=== PATIENT | female | born 1970 | race Caucasian/White ===

== ENCOUNTER 2019-10-23 11:54 | Outpatient (CLI) | payer OTHER | END 2019-10-23 11:55 | disposition home or self-care (01) | LOC: LAB 11:54 | PROVIDERS: ATTEND Surgery | DX: Z01.812 Encounter for preprocedural laboratory examination (principal); Z20.828 Contact with and (suspected) exposure to other viral communicable diseases; K43.9 Ventral hernia without obstruction or gangrene | CPT/HCPCS: 81599 ==

== ENCOUNTER 2019-10-26 10:12 | Day surgery (SDC) | payer OTHER ==
[2019-10-26] MEDS ORDERED: fentaNYL 100 MCG/2 ML VIAL IVP ONE (10:13)
[2019-10-26] MEDS ORDERED: SUCCINYLCHOLINE 200 MG/10 ML VIAL IVP ONE (10:13)
[2019-10-26] MEDS ORDERED: ONDANSETRON 4 MG/2 ML VIAL IVP ONE (10:13)
[2019-10-26] MEDS ORDERED: NEOSTIGMINE 1 MG/1 ML 10 ML MDV IVP ONE (10:13)
[2019-10-26] MEDS ORDERED: MIDAZOLAM 2 MG/2 ML VIAL IVP ONE (10:13)
[2019-10-26] MEDS ORDERED: GLYCOPYRROLATE 1 MG/5 ML VIAL IVP ONE (10:13)
[2019-10-26] MEDS ORDERED: PROPOFOL 200 MG/20 ML VIAL IVP ONE (10:13)
[2019-10-26] MEDS ORDERED: DEXAMETHASONE 4 MG/ML VIAL IVP ONE (10:13)
[2019-10-26] MEDS ORDERED: ROCURONIUM 50 MG/5 ML VIAL IVP ONE (10:13)
[2019-10-26] MEDS ORDERED: LIDOCAINE-MPF 2% 5 ML VIAL IM ONE (10:13)
[2019-10-26] MEDS ORDERED: CEFAZOLIN SODIUM IN 0.9 % NACL 2 GM/100 ML BAG IV ONE (10:25)
[2019-10-26 10:33] LABS: HCG UR QUAL NEGATIVE
[2019-10-26] MEDS ORDERED: LACTATED RINGERS 1,000 ML IV ONE (10:49)
--- NOTE | 2019-10-26 11:06 | ANESTHESIA ---
Pre-Anesthesia VS, & Labs - Diagnosis open ventral hernia repair with mesh - Procedure ventral hernia Vital Signs: Temp Pulse Resp BP Pulse Ox 36.5 C 94 18 137/95 H 97 10/26/19 10:20 10/26/19 10:20 10/26/19 10:20 10/26/19 10:20 10/26/19 10:20 Height 5 ft 7 in Weight (kg) 104.6 kg - NPO >8 hours - Is Patient ?: No - Lab Results Lab results reviewed: Yes Home Medications and Allergies Home Medications: Ambulatory Orders Biotin 5,000 mcg PO DAILY 10/16/19 Cholecalciferol (Vitamin D3) [Vitamin D3] 2,000 unit PO DAILY 10/16/19 Ibuprofen [Motrin] 600 mg PO Q6H PRN 10/16/19 Loratadine [Claritin] 10 mg PO DAILY 10/16/19 Multivitamin 1 each PO DAILY 10/16/19 Amoxicillin/Potassium Clav [Amox Tr-K Clv 875-125 mg Tab] 1 each PO BID 10/23/19 Loratadine [Claritin] 10 mg PO DAILY 10/23/19 predniSONE [Deltasone] 20 mg PO BID 10/23/19 Biotin 5,000 mcg PO DAILY 10/16/19 Cholecalciferol (Vitamin D3) [Vitamin D3] 2,000 unit PO DAILY 10/16/19 Ibuprofen [Motrin] 600 mg PO Q6H PRN 10/16/19 Loratadine [Claritin] 10 mg PO DAILY 10/16/19 Multivitamin 1 each PO DAILY 10/16/19 Amoxicillin/Potassium Clav [Amox Tr-K Clv 875-125 mg Tab] 1 each PO BID 10/23/19 Loratadine [Claritin] 10 mg PO DAILY 10/23/19 predniSONE [Deltasone] 20 mg PO BID 10/23/19 Allergies/Adverse Reactions: Allergies Allergy/AdvReac Type Severity Reaction Status Date / Time avocado Allergy Anaphylaxis Verified 10/16/19 16:07 Anes History & Medical History - Anesthetic History Anesthesia Complications: reports: No previous complications Family history of Anesthesia Complications: Denies Family history of Malignant Hyperthermia: Denies - Medical History Cardiovascular: reports: Hypertension Pulmonary: reports: None Gastrointestinal: reports: GERD, Hiatal hernia, Colon polyps, Other Urinary: reports: None Musculoskeletal: reports: None Endocrine/Autoimmune: reports: None, Other (obesity) Skin: reports: None Smoking Status: Former smoker (quit 2011) Other Past Medical History: recently concluded regimen of prednisone for tx of what was suspected to be seasonal allergy related swelling of left neck lymph nodes, pharyngitis, dysphagia. patient reports swelling and symptoms resolved now. - Surgical History General: Colonoscopy, EGD, Other Exam General: Alert, Oriented x3, Cooperative Dental: WNL Mouth Opening: Greater than 4 Fingerbreadths Neck Mobility: Normal Mallampati classification: III Thyromental Distance: 4-6 cm Respiratory: Lungs clear Cardiovascular: Regular rate Plan Anesthesia Type: General Consent for Procedure(s) Verified and Reviewed: Yes Code Status: Attempt Resuscitation ASA classification: 2-Mild systemic disease Is this case an emergency?: No
[2019-10-26] MEDS ORDERED: BUPIVACAINE 0.25% PF 30 ML VIAL ONE (12:17)
[2019-10-26] MEDS ORDERED: BUPIVACAINE 0.25% PF 30 ML VIAL SUBQ ONE (13:31)
[2019-10-26] MEDS ORDERED: ONDANSETRON 4 MG/2 ML VIAL IVP PRN (15:00)
[2019-10-26] MEDS ORDERED: ACETAMINOPHEN/CODEINE 300 MG/30 MG TABLET PO PRN (15:02)
[2019-10-26] MEDS ORDERED: ACETAMINOPHEN/CODEINE 300 MG/30 MG TABLET PO ONE (15:29)
[2019-10-26 15:37] VITALS: BP 137/90
--- NOTE | 2019-10-26 17:54 | OPERATIVE REPORT ---
DATE OF SERVICE: 10/26/2019 Physician: Washington Nova MD PREOPERATIVE DIAGNOSIS: Ventral hernia. POSTOPERATIVE DIAGNOSIS: Ventral hernia. PROCEDURE PERFORMED 1. Open ventral hernia repair with mesh. 2. Preperitoneal dissection for mesh placement. SURGEON: Washington Nova MD SENIOR LICENSING MANAGER: None. TYPE OF ANESTHESIA 1. General endotracheal. 2. Local anesthesia with Marcaine. COMPLICATIONS: None. SPECIMENS: None. ESTIMATED BLOOD LOSS: None. DRAINS: None. FINDINGS: A 2.5 cm defect at the umbilicus and approximately 4 to 4.5 x 3 cm defect 1 cm cephalad of the umbilical hernia. Prosthetic, 1.5 inch wide x 2.5 inch wide cephalad by 5 inch tall polypropyle ne mesh placed preperitoneal. INDICATIONS FOR PROCEDURE: Patient is a 48-year-old with a symptomatic ventral hernia. She presents for open repair with mesh. Risks discussed. Alternatives discussed. All questions answered and co nsent obtained. DETAILS OF PROCEDURE: Patient was properly identified, brought to the operating room and placed in s upine position. She voided prior to surgery. General endotracheal anesthesia was induced. Sequenti al compression devices were placed. She was prepped and draped in a sterile fashion, given preoperat jacqueline antibiotics. Local anesthetic was given throughout the procedure. A supraumbilical 4 cm incisio n was made. The incision was extended left lateral to the umbilicus. Dissection proceeded with cutt ing current cautery or sharp dissection. The umbilical skin was sharply excised away from the umbili abiola hernia sac. She had herniated preperitoneal adipose tissue measuring approximately 4 x 4 cm ceph alad. The hernia sacs were carefully released from the fascia with cutting current cautery. The sma ll bridge between the 2 hernias was carefully released. A large preperitoneal dissection was perform ed. A pocket was created large enough for a 5 inch tall mesh as she has a sizable diastasis. A 2.5 inch wide cephalad by 1.5 wide caudad and 5 inches tall polypropylene mesh was placed preperitoneal. It was secured with multiple interrupted 0 Ethibond sutures. A double row was placed. The fascia w as brought largely together leaving a central defect of approximately 1.5 cm wide x 2.5 cm tall. The umbilical skin was tacked back down to fascia with interrupted 2-0 Vicryl, deep subcutaneous was neeraj sed with interrupted 2-0 Vicryl suture. Buried interrupted subdermal 3-0 Vicryl sutures were then pl aced. Skin was closed with a running 4-0 Monocryl subcuticular suture. Dressing was applied. She t olerated the procedure very well. TD: 10/26/2019 15:32
== END 2019-10-26 10:13 | disposition home or self-care (01) ==
LOC: SDS 10:12
PROVIDERS: ATTEND Surgery
DX: K43.9 Ventral hernia without obstruction or gangrene (principal); K42.9 Umbilical hernia without obstruction or gangrene; E66.9 Obesity, unspecified; Z68.36 Body mass index [BMI] 36.0-36.9, adult
CPT/HCPCS: 49560; 49568; 81025; A9270; C1781; J0330; J0690; J7120

== ENCOUNTER 2021-10-21 07:51 | Outpatient (CLI) | payer OTHER ==
--- NOTE | 2021-10-21 15:21 | MRI Report ---
PROCEDURE: Ankle RT W/O INDICATIONS: RIGHT ANKLE PAIN TECHNIQUE: Noncontrast Magnetic Resonance Imaging (MRI) of the ankle/hindfoot was performed utilizing the follow ing sequences on a 3.0 Laura Siemens MRI: sagittal T1 spin echo, sagittal STIR, axial PD fast spin ec ho, axial T2 fast spin echo with fat saturation, coronal T2 spin echo with fat saturation, and PD fas t spin echo with fat saturation. COMPARISON: None. FINDINGS: Image quality: Diagnostic. Bones and joints: Mild midfoot and hindfoot joint osteoarthritic changes are seen with joint space narrowing and subcho ndral sclerosis more prominent involving talonavicular joint, and second TMT joint. No fracture or di slocation. No hindfoot coalitions. No osteochondral injury of talar dome. Small tibiotalar and subtal ar joint effusion is seen, no gross loose bodies. Well-defined plantar and dorsal calcaneal enthesoph ytes are seen. Medial structures: The deltoid ligament and the spring ligament are intact. The posterior tibialis tendon is thickened with intrasubstance T2 hyperintense signal at the level of distal talus/talonavicular joint. The flexor digitorum longus, and flexor hallucis longus tendons ar e intact and within normal limits. The posterior tibial neurovascular bundle appears normal within th e tarsal tunnel, without extrinsic mass effect. Lateral structures: The anterior and posterior distal tibiofibular ligaments are intact. There is suggestion of sprain/lo w-grade partial thickness tear involving anterior and posterior talofibular ligaments. The calcaneofi bular ligament is intact. The peroneus longus and peroneus brevis tendons are intact and otherwise unremarkable. The sinus tarsi demonstrates normal fatty signal. Anterior structures: The tibialis anterior, extensor hallucis longus, and extensor digitorum longus tendons appear intact. Posterior and plantar structures: The Achilles tendon is intact. The medial and lateral bands of the plantar fascia are within normal l imits. IMPRESSION: 1. Mild midfoot and hindfoot joint osteoarthritis. No fracture or dislocation. Well-defined calcaneal enthesophytes. 2. Suggestion of sprain/low-grade partial thickness tear involving anterior and posterior talofibular ligaments. Medial ankle ligaments are intact. 3. Tendinosis and low-grade intrasubstance partial thickness tear involving posterior tibialis tendon at the level of distal talus/talonavicular joint. Rest of the ankle tendons are intact. Reviewed by: Galindo Smith MD on 10/21/2021 3:20 PM PDT Approved by: Galindo Smith MD on 10/21/2021 3:20 PM PDT Station ID: [id number]
== END 2021-10-21 07:52 | disposition home or self-care (01) ==
LOC: DI 07:51
PROVIDERS: ATTEND Student in an Organized Health Care Education/Training Program
DX: M19.071 Primary osteoarthritis, right ankle and foot (principal); S96.821A Laceration of other specified muscles and tendons at ankle and foot level, right foot, initial encounter

== ENCOUNTER 2023-03-08 15:08 | Outpatient (CLI) | payer OTHER | END 2023-03-08 15:09 | disposition home or self-care (01) | LOC: DI 15:08 | PROVIDERS: ATTEND Nurse Practitioner Family | DX: I51.7 Cardiomegaly (principal); Z82.49 Family history of ischemic heart disease and other diseases of the circulatory system | CPT/HCPCS: 93306 ==